=== PATIENT | male | born 1970 | race African-American/Black ===

== ENCOUNTER 2023-09-22 07:44 | Emergency (ER) | payer OTHER ==
[~2023-09-22] VITALS: Ht 172.7 cm; Wt 94.3 kg
[2023-09-22 07:51] VITALS: BP 128/86; PULSE 90; RESP 14; TEMP 97.2; O2SAT 100
[2023-09-22] MEDS ORDERED: BACTO TP (08:31)
[2023-09-22] MEDS: BACITRACIN OINT 500 UNITS/GM PKT TP ONE (09:03)
== END 2023-09-22 09:04 | disposition home or self-care (01) ==
LOC: MED 07:44
DX: R21 Rash and other nonspecific skin eruption (principal); Z79.899 Other long term (current) drug therapy
CPT/HCPCS: 99283